=== PATIENT | female | born 1950 | race Caucasian/White ===

== ENCOUNTER 2022-06-05 03:48 | Observation (INO) ==
[2022-06-05] MEDS ORDERED: Lactated Ringers 1000 ml BAG 1,000 ML IV ONE (04:06)
[2022-06-05 04:36] LABS: ABS Basophils 0.1 10^3/ul (0-0.2); ABS Eosinophils 0.3 10^3/ul (0-0.6); ABS Lymphocytes 2.4 10^3/ul (1.0-4.8); ABS Monocytes 0.7 10^3/ul (0-0.8); ABS Neutrophils 5.6 10^3/ul (1.5-7.7); Eosinophil % 2.9 %; Hematocrit 47 % (35-47); Hemoglobin 15.8 g/dL (12.0-16.0); Lymphocyte % 26.8 %; Mean Corpuscular HGB Conc 34 g/dL (31-36); Mean Corpuscular Hemoglobin 31 pg (27-31); Mean Corpuscular Volume 91 fL (80-97); Nucleated Red Blood Cells % 0.1; Platelet Count 228 10^3/uL (150-450); Red Blood Count 5.14 10^6 /uL (3.70-4.87); Red Cell Distribution Width 13 % (10-15); White Blood Count 9.1 10^3/uL (3.5-10.8)
[2022-06-05 04:42] LABS: INR 0.92 (0.88-1.18)
[2022-06-05 05:23] LABS: Albumin 4.3 g/dL (3.2-5.2); Albumin/Globulin Ratio 1.4 (1-3); Calcium 9.6 mg/dL (8.6-10.3); Magnesium 1.8 mg/dL (1.9-2.7); Potassium 4.5 mmol/L (3.5-5.0); Total Bilirubin 0.4 mg/dL (0.2-1.0); Total Protein 7.3 g/dL (6.4-8.9); eGFR CKD-EPI 75.2 (>60)
[2022-06-05] MEDS ORDERED: Magnesium Sulfate 2 gm BAG 2 GM/50 ML BAG IVPB ONE (05:24)
[2022-06-05 05:37] LABS: TSH Ultra Thyroid Stim Horm 4.48 mcIU/mL (0.34-5.60)
[2022-06-05 06:20] LABS: High Sensitivity Troponin 1 Hr 46 pg/mL (<15)
[2022-06-05] MEDS ORDERED: Metoprolol Tartrate 5 mg VIAL 5 ml VIAL (1 mg/ml) IV ONE ×2 (07:32→08:53)
[2022-06-05] MEDS ORDERED: Enoxaparin 100 MG/ML SYR SUBCUT SCH (08:06)
[2022-06-05] MEDS ORDERED: NS 0.9% 1000 ml BAG 1,000 ML IV ONE (16:00)
[2022-06-05 18:34] VITALS: BP 180/89
== END 2022-06-05 19:45 | disposition home or self-care (01) ==
LOC: ED 03:48 → EDHOLD 03:48
PROVIDERS: ADMIT Hospitalist; ATTEND Hospitalist